=== PATIENT | male | born 1995 | race Caucasian/White ===

== ENCOUNTER 2018-08-16 15:56 | Emergency (ER) | payer SELFPAY ==
[~2018-08-16] VITALS: Ht 182.9 cm; Wt 77.3 kg
[2018-08-16 15:58] VITALS: Ht 182.9 cm; Wt 77.3 kg
[2018-08-16] MEDS ORDERED: PHENERGAN DM SYR5 ML PO (18:50)
[2018-08-16] MEDS ORDERED: KEFLEX500 MG PO (18:50)
[2018-08-16 20:11] VITALS: BP 129/95
== END 2018-08-16 20:11 | disposition home or self-care (01) ==
LOC: D.ER 15:56
DX: J06.9 Acute upper respiratory infection, unspecified (principal); M79.18 Myalgia, other site